=== PATIENT | female | born 1985 | race American Indian/Alaskan Native ===

== ENCOUNTER 2019-06-21 03:40 | Emergency (ER) | payer OTHER ==
[2019-06-21] MEDS ORDERED: BENADRYL PO ONE (06:08)
[2019-06-21] MEDS ORDERED: DECADRON IM ONE (06:08)
[2019-06-21] MEDS ORDERED: TYLENOL PO ONE (06:08)
[2019-06-21] MEDS ORDERED: REGLAN PO ONE (06:08)
--- NOTE | 2019-06-21 07:51 | Emergency Department Report ---
ED Headache HPI - General Chief Complaint: Dizziness Stated Complaint: HEADACHE,DIZZINESS Time Seen by Provider: 06/21/19 07:47 Source: patient Exam Limitations: no limitations - History of Present Illness Timing/Duration: 1 week Quality: moderate, achy Head Injury Location: frontal Recent Head Trauma: no recent headache/trauma, chronic headaches Modifying Factors: improves with: rest. worse with: movement Associated Symptoms: denies symptoms. denies: confusion, fatigue, facial pain, fever/chills, flushing, loss of consciousness, nausea/vomiting, nasal congestion, nasal drainage, numbness in legs/feet, rash, seizures, sinus infection, stiff neck, vision changes, weakness Allergies/Adverse Reactions: Allergies No Known Allergies Allergy (Unverified 06/21/19 04:03) Home Medications: Ambulatory Orders Amoxicillin/Potassium Clav [Augmentin 875-125 Tablet] 1 each PO BID #20 tablet 06/21/19 Benzonatate [Tessalon Perles] 100 mg PO Q8HR #30 capsule 06/21/19 Ibuprofen [Motrin 600 MG tab] 600 mg PO Q8H PRN #30 tablet 06/21/19 Loratadine [Claritin] 10 mg PO DAILY #15 tablet 06/21/19 amLODIPine [Norvasc] 5 mg PO DAILY #30 tab 06/21/19 ED Review of Systems ROS: Stated complaint: HEADACHE,DIZZINESS Other details as noted in HPI Constitutional: denies: chills, fever Eyes: denies: eye pain, eye discharge, vision change ENT: denies: ear pain, throat pain, dental pain, hearing loss, congestion Respiratory: denies: cough, shortness of breath, SOB with exertion, SOB at rest, stridor, wheezing Cardiovascular: denies: chest pain, palpitations, dyspnea on exertion, orthopnea Endocrine: no symptoms reported Gastrointestinal: denies: abdominal pain, nausea, diarrhea Genitourinary: denies: urgency, dysuria, discharge Musculoskeletal: denies: back pain, joint swelling, arthralgia Skin: denies: rash, lesions Neurological: headache. denies: weakness, numbness, paresthesias, confusion, abnormal gait, vertigo Psychiatric: denies: anxiety, depression Hematological/Lymphatic: denies: easy bleeding, easy bruising ED Past Medical Hx - Past Medical History Previous Medical History?: Yes Hx Hypertension: Yes Hx Headaches / Migraines: Yes Hx Seizures: Yes Additional medical history: Brain tumor - Surgical History Past Surgical History?: No - Social History Smoking Status: Never Smoker Substance Use Type: None - Medications Home Medications: Home Medications Medication Instructions Recorded Confirmed Last Taken Type Amoxicillin/Potassium Clav 1 each PO BID #20 tablet 06/21/19 Unknown Rx [Augmentin 875-125 Tablet] Benzonatate [Tessalon Perles] 100 mg PO Q8HR #30 capsule 06/21/19 Unknown Rx Ibuprofen [Motrin 600 MG tab] 600 mg PO Q8H PRN #30 tablet 06/21/19 Unknown Rx Loratadine [Claritin] 10 mg PO DAILY #15 tablet 06/21/19 Unknown Rx amLODIPine [Norvasc] 5 mg PO DAILY #30 tab 06/21/19 Unknown Rx ED Physical Exam - General Limitations: No Limitations General appearance: alert, in no apparent distress - Head Head exam: Present: atraumatic, normocephalic, normal inspection - Eye Eye exam: Present: normal appearance, PERRL, EOMI. Absent: scleral icterus, conjunctival injection, nystagmus, periorbital swelling, periorbital tenderness - ENT ENT exam: Present: mucous membranes moist, normal external ear exam, other (nasal turbinates pale and boggy, TTP maxilliary sinuses). Absent: mucous membranes dry - Expanded ENT Exam Expanded Ear exam: Present: normal external inspection. Absent: auricular hematoma, auricular trauma TM/Canal exam: Effusion: Left TM Mouth exam: Present: normal external inspection, tongue normal. Absent: drooling, trismus, muffled voice, tongue elevation, laceration Teeth exam: Present: normal inspection. Absent: dental caries, fractured tooth #, dental tenderness #, gingival enlargement Throat exam: Positive: normal inspection. Negative: tonsillar exudate, R peritonsillar mass, L peritonsillar mass - Neck Neck exam: Present: normal inspection, full ROM. Absent: tenderness, meningismus, lymphadenopathy, thyromegaly - Respiratory Respiratory exam: Present: normal lung sounds bilaterally. Absent: respiratory distress, wheezes, rales, rhonchi, stridor, chest wall tenderness, accessory muscle use, decreased breath sounds, prolonged expiratory - Cardiovascular Cardiovascular Exam: Present: regular rate, normal rhythm, normal heart sounds. Absent: bradycardia, tachycardia, irregular rhythm, systolic murmur, diastolic murmur, rubs, gallop - Extremities Exam Extremities exam: Present: normal inspection, full ROM, normal capillary refill. Absent: tenderness, pedal edema, joint swelling - Neurological Exam Neurological exam: Present: alert, oriented X3, CN II-XII intact, normal gait, reflexes normal, other (no focal neuro deficits). Absent: motor sensory deficit - Psychiatric Psychiatric exam: Present: normal affect, normal mood - Skin Skin exam: Present: warm, dry, intact, normal color. Absent: rash ED Course Vital Signs 06/21/19 06/21/19 06/21/19 03:48 05:00 06:48 Temperature 98.4 F Pulse Rate 99 H Respiratory 18 18 16 Rate Blood Pressure 150/109 Blood Pressure [Right] O2 Sat by Pulse 99 100 Oximetry 06/21/19 06/21/19 06/21/19 08:02 08:34 09:33 Temperature 98.3 F Pulse Rate 84 84 90 Respiratory 18 18 Rate Blood Pressure 150/112 Blood Pressure 150/112 123/81 [Right] O2 Sat by Pulse 99 97 Oximetry ED Medical Decision Making - Lab Data Vital Signs 06/21/19 06/21/19 06/21/19 03:48 05:00 06:48 Temperature 98.4 F Pulse Rate 99 H Respiratory 18 18 16 Rate Blood Pressure 150/109 O2 Sat by Pulse 99 100 Oximetry Vital Signs 06/21/19 06/21/19 06/21/19 03:48 05:00 06:48 Temperature 98.4 F Pulse Rate 99 H Respiratory 18 18 16 Rate Blood Pressure 150/109 Blood Pressure [Right] O2 Sat by Pulse 99 100 Oximetry 06/21/19 06/21/19 06/21/19 08:02 08:34 09:33 Temperature 98.3 F Pulse Rate 84 84 90 Respiratory 18 18 Rate Blood Pressure 150/112 Blood Pressure 150/112 123/81 [Right] O2 Sat by Pulse 99 97 Oximetry - EKG Data EKG shows normal: sinus rhythm Rate: normal - EKG Data When compared to previous EKG there are: no significant change Interpretation: no acute changes, normal EKG - Differential Diagnosis Sinus Infection, Headache, Migraine, Hypertension Critical care attestation.: If time is entered above; I have spent that time in minutes in the direct care of this critically ill patient, excluding procedure time. ED Disposition Clinical Impression: Sinusitis Qualifiers: Sinusitis location: maxillary Chronicity: acute Recurrence: not specified as recurrent Qualified Code(s): J01.00 - Acute maxillary sinusitis, unspecified Hypertension Qualifiers: Hypertension type: essential hypertension Qualified Code(s): I10 - Essential (primary) hypertension Disposition: TO HOME OR SELFCARE Is pt being admited?: No Does the pt Need Aspirin: No Condition: Stable Instructions: Sinusitis (ED), Hypertension (ED) Additional Instructions: Take medication as directed. Follow up with your scheduled neurologist appointment on August 07, 2019. Return back to the ED for worsening symptoms or concerns. Your blood pressure was elevated today. Follow up with a PCP next week to in order maintain normatensive blood pressure in order to prevent target organ damage such as stroke, paralysis, kidney damages and lungs. The following lifestyle modifications can assist with managing your blood pressure: eat less salt, exercise and maintain a healthy weight, limit alcohol, do not smoke and decrease stress. Return to the emergency department if you have severe headache, vision loss, weakness in an arm or leg, confused, difficulty speaking, chest discomfort, trouble breathing, lightheaded, jaw, back, neck or stomach pain. Prescriptions: Amoxicillin/Potassium Clav [Augmentin 875-125 Tablet] 1 each PO BID #20 tablet Loratadine [Claritin] 10 mg PO DAILY #15 tablet Ibuprofen [Motrin 600 MG tab] 600 mg PO Q8H PRN #30 tablet PRN Reason: Pain amLODIPine [Norvasc] 5 mg PO DAILY #30 tab Benzonatate [Tessalon Perles] 100 mg PO Q8HR #30 capsule Referrals: HELEN GONZALEZ MD [Referring] - 3-5 Days TRINIDAD CASTANON MD [Staff Physician] - 3-5 Days SOFIA WILBURN MD [Referring] - 3-5 Days Forms: Work/School Release Form(ED) Time of Disposition: 09:43
[2019-06-21] MEDS ORDERED: CATAPRES PO ONE (08:27)
[2019-06-21 09:34] VITALS: BP 123/81
== END 2019-06-21 09:51 | disposition home or self-care (01) ==
LOC: ED 03:40
DX: J01.00 Acute maxillary sinusitis, unspecified (principal); I10 Essential (primary) hypertension; G43.909 Migraine, unspecified, not intractable, without status migrainosus; Z79.899 Other long term (current) drug therapy; Z79.1 Long term (current) use of non-steroidal anti-inflammatories (NSAID)
CPT/HCPCS: 93005; 93010; 96372; 99282; J1100